=== PATIENT | female | born 1955 | race Caucasian/White ===

== ENCOUNTER 2020-08-19 10:47 | Observation (INO) | payer OTHER ==
[~2020-08-19] VITALS: Ht 165.1 cm; Wt 102.6 kg
--- NOTE | 2020-08-19 10:57 | PHYS DOC ---
Past History Past Medical History: No Pertinent History Past Surgical History: Other Smoking: Non-smoker Alcohol Use: None Drug Use: None General Adult EDM: Chief Complaint: ALTERED MENTAL STATUS HPI: HPI: Patient is a 64-year-old female presents with chief complaint of altered mental status and aphasia that happened between 9 and 10 earlier today. Patient has had a mild headache that has since resolved. Patient says she feels back to normal. Patient states she was talking on the phone and having difficulty communicating and coming up with words coming up with what happened yesterday. Patient denies any lateralizing deficits. Patient states she feels back to normal now. Review of Systems: Review of Systems: Constitutional: Denies fever or chills Eyes: Denies change in visual acuity HENT: Denies nasal congestion or sore throat Respiratory: Denies cough or shortness of breath Cardiovascular: Denies chest pain or edema GI: Denies abdominal pain, nausea, vomiting, bloody stools or diarrhea : Denies dysuria Musculoskeletal: Denies back pain or joint pain Integument: Denies rash Neurologic: Patient had a headache that has since resolved denies any focal weakness or numbness Endocrine: Denies polyuria or polydipsia Lymphatic: Denies swollen glands Psychiatric: Denies depression or anxiety Heart Score: Risk Factors: Risk Factors: DM, Current or recent (<one month) smoker, HTN, HLP, family history of CAD, obesity. Risk Scores: Score 0 - 3: 2.5% MACE over next 6 weeks - Discharge Home Score 4 - 6: 20.3% MACE over next 6 weeks - Admit for Clinical Observation Score 7 - 10: 72.7% MACE over next 6 weeks - Early Invasive Strategies Allergies: Allergies: Allergies Coded Allergies Type Severity Reaction Last Updated Verified No Known Drug Allergies 08/31/15 No Physical Exam: PE: Constitutional: Well developed, well nourished, no acute distress, non-toxic appearance. [] HENT: Normocephalic, atraumatic, bilateral external ears normal, oropharynx moist, no oral exudates, nose normal. [] Eyes: PERRLA, EOMI, conjunctiva normal, no discharge. [] Neck: Normal range of motion, no tenderness, supple, no stridor. [] Cardiovascular:Heart rate regular rhythm, no murmur [] Lungs & Thorax: Bilateral breath sounds clear to auscultation [] Abdomen: Bowel sounds normal, soft, no tenderness, no masses, no pulsatile masses. [] Skin: Warm, dry, no erythema, no rash. [] Back: No tenderness, no CVA tenderness. [] Extremities: No tenderness, no cyanosis, no clubbing, ROM intact, no edema. [] Neurologic: Alert and oriented X 3, normal motor function, normal sensory function, no focal deficits noted. [] Psychologic: Affect normal, judgement normal, mood normal. [] Current Patient Data: Labs: Laboratory Tests Test 08/19/20 11:16 08/19/20 11:35 White Blood Count 7.4 x10^3/uL Red Blood Count 4.31 x10^6/uL Hemoglobin 13.2 g/dL Hematocrit 39.9 % Mean Corpuscular Volume 92 fL Mean Corpuscular Hemoglobin 31 pg Mean Corpuscular Hemoglobin Concent 33 g/dL Red Cell Distribution Width 14.1 % Platelet Count 226 x10^3/uL Neutrophils (%) (Auto) 60 % Lymphocytes (%) (Auto) 25 % Monocytes (%) (Auto) 9 % Eosinophils (%) (Auto) 4 % Basophils (%) (Auto) 1 % Neutrophils # (Auto) 4.5 x10^3uL Lymphocytes # (Auto) 1.9 x10^3/uL Monocytes # (Auto) 0.7 x10^3/uL Eosinophils # (Auto) 0.3 x10^3/uL Basophils # (Auto) 0.1 x10^3/uL Prothrombin Time 10.0 SEC Prothromb Time International Ratio 1.0 Activated Partial Thromboplast Time 28 SEC Sodium Level 139 mmol/L Potassium Level 4.0 mmol/L Chloride Level 103 mmol/L Carbon Dioxide Level 27 mmol/L Anion Gap 9 Blood Urea Nitrogen 14 mg/dL Creatinine 1.0 mg/dL Estimated GFR (Cockcroft-Gault) 55.8 BUN/Creatinine Ratio 14 Glucose Level 95 mg/dL Calcium Level 9.3 mg/dL Total Bilirubin 0.4 mg/dL Aspartate Amino Transf (AST/SGOT) 7 U/L Alanine Aminotransferase (ALT/SGPT) 20 U/L Alkaline Phosphatase 81 U/L Troponin I Quantitative < 0.017 ng/mL Total Protein 7.0 g/dL Albumin 3.8 g/dL Albumin/Globulin Ratio 1.2 Current Medications Medications (Trade) Dose Ordered Sig/Krista Route PRN Reason Start Time Stop Time Status Last Admin Dose Admin Aspirin (Aspirin Chewable) 324 mg 1X ONCE PO 08/19/20 11:45 08/19/20 11:48 DC 08/19/20 12:55 Vital Signs: Vital Signs Date Time Temp Pulse Resp B/P (MAP) Pulse Ox O2 Delivery O2 Flow Rate FiO2 08/19/20 13:14 97.5 71 20 176/79 (111) 94 08/19/20 12:02 Room Air EKG: EKG: [] EKG interpreted by me normal sinus rhythm with rate of 79 normal axis normal intervals normal ST segments Radiology/Procedures: Radiology/Procedures: [][address] [address] IMAGING REPORT Signed PATIENT: KYLE TAVARES ACCOUNT: [id number] : 1955 LOCATION: ER AGE: 64 SEX: F EXAM STATUS: REG ER ORD. PHYSICIAN: PEDRO KEEN MD REASON: APHASIA PROCEDURE: CT HEAD WO CONTRAST Examination: CT HEAD WO CONTRAST History: APHASIA Comparison/Correlation: 08/31/2015 CT head without contrast Findings: Axial images of the head were obtained without contrast. Ventricles are normal size. No intracranial hemorrhage, midline shift or mass effect. Globes and optic nerves are unremarkable. The partially visualized paranasal sinuses are unremarkable. Mastoid air cells are clear. At the right frontal region on axial image 13, there is a 0.5 cm diameter density in the scalp which probably represents a sebaceous cyst. It is increased since the prior exam of 08/31/2015. Impression: No suspicious process. Electronically signed by: Mickey Sheldon MD (08/19/2020 11:23 AM) [id number] DICTATED AND SIGNED BY: MICKEY SHELDON MD DATE: 08/19/20 1123 CC: PEDRO KEEN MD; PCP,NO ~ [address] [address] IMAGING REPORT Signed PATIENT: KYLE TAVARES ACCOUNT: [id number] : 1955 LOCATION: ER AGE: 64 SEX: F EXAM STATUS: REG ER ORD. PHYSICIAN: PEDRO KEEN MD REASON: APHASIA PROCEDURE: CHEST AP ONLY Examination: CHEST AP ONLY History: APHASIA / Comparison: 08/31/2015 portable chest x-ray exam. Findings: AP portable upright frontal view of the chest was obtained. The cardiomediastinal silhouette is normal. Lungs are clear. There is no pneumothorax. No pleural effusion is appreciated. No acute bone abnormality. IMPRESSION: No acute cardiopulmonary process. Electronically signed by: Mickey Sheldon MD (08/19/2020 11:24 AM) [id number] DICTATED AND SIGNED BY: MICKEY SHELDON MD DATE: 08/19/20 112 CC: PEDRO KEEN MD; PCP,NO ~ [place] [address] IMAGING REPORT Signed PATIENT: KYLE TAVARES ACCOUNT: [id number] : 1955 LOCATION: [address] [place] [address] AGE: 64 SEX: F EXAM STATUS: ADM IN ORD. PHYSICIAN: PEDRO KEEN MD REASON: APHASIA, OMNI 350, 75ml PROCEDURE: CT ANGIOGRAPHY HEAD AND NECK EXAM: CT ANGIOGRAPHY HEAD AND NECK DATE: 08/19/2020 11:43 AM INDICATION: APHASIA TECHNIQUE: CTA angiogram of the head and neck was obtained after IV bolus administration of 75 cc of Optiray 350. The images were sent to workstation and multiplanar reconstructions were obtained. Multiplanar reconstruction images to include MIP and 3-D reconstruction images are submitted. One or more of the following dose reduction techniques were utilized: Automated exposure control (AEC), Adjustment of mA and/or kV according to patient size, Use of iterative reconstruction technique such as ASiR, CT scan done according to ALARA and image gently/image wisely COMPARISON: Noncontrast CT head done earlier today. FINDINGS: CTA Head: The visualized distal internal carotid arteries, anterior and middle cerebral arteries are patent and normal caliber. The distal vertebral arteries, basilar artery, and posterior cerebral arteries are patent and normal caliber. No aneurysm or arteriovenous malformation is seen. CTA Neck: Right carotid: The right common carotid artery is patent and normal caliber. The carotid bifurcation is normal. No stenosis of the right internal carotid artery per NASCET criteria. The right external carotid artery is patent. Left carotid: The left common carotid artery is patent and normal caliber. Mild atherosclerosis of the carotid bifurcation. No stenosis of the left internal carotid artery per NASCET criteria. The left external carotid artery is patent. Right vertebral: The right vertebral artery is patent and normal caliber. Left vertebral: The left vertebral artery is patent and normal caliber. The visualized portions of the aortic arch are normal. The origins of the brachiocephalic and subclavian arteries are normal. No cervical lymphadenopathy. The thyroid gland is normal. The parotid and submandibular glands are normal. The visualized aerodigestive tract is unremarkable. Mild multilevel degenerative disc height loss. Multilevel disc protrusions and marginal osteophytes results in multilevel spinal canal stenosis. Multilevel uncovertebral and facet arthrosis with multilevel neural foraminal narrowing. The visualized portions of the lungs are clear. IMPRESSION: 1. No large vessel occlusion. 2. No stenosis of the cervical carotid or vertebral arteries. PQRS Compliance Statement - Stenosis calculations for CT, MR and conventional angiography are based upon measurement of the distal ICA diameter in accordance with the NASCET methodology. Electronically signed by: Afua Slaughter MD (08/19/2020 12:50 PM) [facility] DICTATED AND SIGNED BY: AFUA SLAUGHTER MD DATE: 08/19/20 1250 CC: PEDRO KEEN MD; MARIBETH JOAQUIN MD; JULIETA MIRELES MD ~ Course & Med Decision Making: Course & Med Decision Making Pertinent Labs and Imaging studies reviewed. (See chart for details) [] 1a Level of Consciousness: 0 = Alert; keenly responsive. 1b LOC Questions: 0 = Answers both questions correctly. 1c 0 = Performs both tasks correctly. 2 Best Gaze: 0 = Normal. 3. Visual: 0 = No visual loss. 4. Facial Palsy: 0 = Normal symmetrical movements. 5. Motor Arm: Left 0 = No drift; limb holds 90 (or 45) degrees for full 10 seconds. Right 0 = No drift; limb holds 90 (or 45) degrees for full 10 seconds. 6. Motor Leg: Left 0 = No drift; leg holds 30-degree position for full 5 seconds. Right 0 = No drift; leg holds 30-degree position for full 5 seconds. 7. Limb Ataxia: 0 8. Sensory: 0 = Normal; no sensory loss. 9. Best Langauge: 0 = No aphasia; normal. 10 Dysarthria: 0 = Normal. 11. Extinction and Inattention (formerly Neglect): 0 = No abnormality. 64-year-old female presents with a 1 hour episode of some mild confusion with expressive aphasia. Concerning for a TIA. NIH is [address] shows no intracranial hemorrhage. I discussed Dr. Duarte who will admit. Dr. Dempsey will consult. No TPA was given with a NIH of 0. No LVO on CTA therefore patient not candidate for interventional neurology Dragon Disclaimer: Dragadolfo Disclaimer: This electronic medical record was generated, in whole or in part, using a voice recognition dictation system. Departure Departure: Impression: Primary Impression: TIA (transient ischemic attack) Additional Impression: Aphasia Disposition: 01 HOME/RESIDENCE PRIOR TO ADM Admitting Physician: Maribeth Joaquin Condition: STABLE Referrals: PCP,NO (PCP) Justification of Admission: Justification of Admission: Justification of Admission Dx: Yes (TIA) PEDRO KEEN MD Aug 19, 2020 10:56
[2020-08-19 11:26] LABS: BASO # 0.1 x10^3/uL (0.0-0.2); BASO % 1 % (0-3); EOS # 0.3 x10^3/uL (0.0-0.7); EOS % 4 % (0-3); HEMATOCRIT 39.9 % (36.0-47.0); HEMOGLOBIN 13.2 g/dL (12.0-15.5); LYMPH # 1.9 x10^3/uL (1.0-4.8); LYMPH % 25 % (24-48); MEAN CORPUSCULAR HEMOGLOBIN 31 pg (25-35); MEAN CORPUSCULAR HGB CONC 33 g/dL (31-37); MEAN CORPUSCULAR VOLUME 92 fL (79-100); MONO # 0.7 x10^3/uL (0.0-1.1); MONO % 9 % (0-9); NEUT # 4.5 x10^3uL (1.8-7.7); NEUT % 60 % (31-73); PLATELET COUNT 226 x10^3/uL (140-400); RED BLOOD COUNT 4.31 x10^6/uL (3.50-5.40); RED CELL DISTRIBUTION WIDTH 14.1 % (11.5-14.5); WHITE BLOOD COUNT 7.4 x10^3/uL (4.0-11.0)
--- NOTE | 2020-08-19 11:26 | RAD ---
Examination: CT HEAD WO CONTRAST History: APHASIA Comparison/Correlation: 08/31/2015 CT head without contrast Findings: Axial images of the head were obtained without contrast. Ventricles are normal size. No intracranial hemorrhage, midline shift or mass effect. Globes and optic nerves are unremarkable. The partially visualized paranasal sinuses are unremarkable. Mastoid air cells are clear. At the right frontal region on axial image 13, there is a 0.5 cm diameter density in the scalp which probably represents a sebaceous cyst. It is increased since the prior exam of 08/31/2015. Impression: No suspicious process. Electronically signed by: Mickey Manning MD (08/19/2020 11:23 AM) [email or web address]
--- NOTE | 2020-08-19 11:27 | RAD ---
Examination: CHEST AP ONLY History: APHASIA / Comparison: 08/31/2015 portable chest x-ray exam. Findings: AP portable upright frontal view of the chest was obtained. The cardiomediastinal silhouette is normal. Lungs are clear. There is no pneumothorax. No pleural effusion is appreciated. No acute bone abnormality. IMPRESSION: No acute cardiopulmonary process. Electronically signed by: Mickey Manning MD (08/19/2020 11:24 AM) [email or web address]
[2020-08-19] MEDS ORDERED: ASPIRIN CHEWABLE 81 MG TABLET. PO ONE (11:45)
[2020-08-19] MEDS ORDERED: IOHEXOL 350 MG/ML 100 ML VIAL. IV ONE (12:00)
[2020-08-19 12:02] LABS: CALCIUM 9.3 mg/dL (8.5-10.1); GFR 55.8
[2020-08-19 12:07] LABS: ALBUMIN 3.8 g/dL (3.4-5.0); ALBUMIN/GLOBULIN RATIO 1.2 (1.0-1.7); TOTAL BILIRUBIN 0.4 mg/dL (0.2-1.0)
--- NOTE | 2020-08-19 12:53 | RAD ---
EXAM: CT ANGIOGRAPHY HEAD AND NECK DATE: 08/19/2020 11:43 AM INDICATION: APHASIA TECHNIQUE: CTA angiogram of the head and neck was obtained after IV bolus administration of 75 cc of Optiray 350. The images were sent to workstation and multiplanar reconstructions were obtained. Multiplanar reconstruction images to include MIP and 3-D reconstruction images are submitted. One or more of the following dose reduction techniques were utilized: Automated exposure control (AEC), Adjustment of mA and/or kV according to patient size, Use of iterative reconstruction technique such as ASiR, CT scan done according to ALARA and image gently/image wisely COMPARISON: Noncontrast CT head done earlier today. FINDINGS: CTA Head: The visualized distal internal carotid arteries, anterior and middle cerebral arteries are patent and normal caliber. The distal vertebral arteries, basilar artery, and posterior cerebral arteries are patent and normal caliber. No aneurysm or arteriovenous malformation is seen. CTA Neck: Right carotid: The right common carotid artery is patent and normal caliber. The carotid bifurcation is normal. No stenosis of the right internal carotid artery per NASCET criteria. The right external carotid artery is patent. Left carotid: The left common carotid artery is patent and normal caliber. Mild atherosclerosis of the carotid bifurcation. No stenosis of the left internal carotid artery per NASCET criteria. The left external carotid artery is patent. Right vertebral: The right vertebral artery is patent and normal caliber. Left vertebral: The left vertebral artery is patent and normal caliber. The visualized portions of the aortic arch are normal. The origins of the brachiocephalic and subclavian arteries are normal. No cervical lymphadenopathy. The thyroid gland is normal. The parotid and submandibular glands are normal. The visualized aerodigestive tract is unremarkable. Mild multilevel degenerative disc height loss. Multilevel disc protrusions and marginal osteophytes results in multilevel spinal canal stenosis. Multilevel uncovertebral and facet arthrosis with multilevel neural foraminal narrowing. The visualized portions of the lungs are clear. IMPRESSION: 1. No large vessel occlusion. 2. No stenosis of the cervical carotid or vertebral arteries. PQRS Compliance Statement - Stenosis calculations for CT, MR and conventional angiography are based upon measurement of the distal ICA diameter in accordance with the NASCET methodology. Electronically signed by: Akshat Slaughter MD (08/19/2020 12:50 PM) [facility]ALTH[facility]
[2020-08-19 13:14] VITALS: BP 176/79
--- NOTE | 2020-08-19 13:30 | NUR ---
The patient, KYLE TAVARES, 64 y/o, F admitted by SENG WARREN MD, was given written information regarding hospital policies, unit procedures and used car salesperson. Patient was calm, pleasant, and compliant at admit. Oriented patient to unit, including her room, light, bed and tv controls, visitation policy, and telephone. Will continue to monitor.
--- NOTE | 2020-08-19 14:54 | EKG ---
[address] [address] Test Date: 2020-08-19 Test Time: 11:08:44 Pat Name: KYLE TAVARES Department: Room: Gender: F Director Security Management: ROSALIO : 1955 Requested By: PEDRO KEEN Order Number: [id number] Reading MD: Measurements Intervals [place] Rate: 79 P: 48 [place]: 152 QRS: 14 QRSD: 76 T: 36 QT: 364 QTc: 423 Interpretive Statements SINUS RHYTHM NORMAL ECG RI6.02 No previous ECG available for comparison
--- NOTE | 2020-08-19 18:33 | HP ---
ADMIT DATE: 08/19/2020 HISTORY OF PRESENT ILLNESS: The patient is a 64-year-old female patient who came to the Emergency Room with a chief complaint of altered mental status and aphasia that happened between 9 and 10 early this morning. She has had a mild headache that has since resolved. The patient states that she feels back to normal. Denied any tingling or numbness. Denied any weakness. Denied any blurring of vision or diplopia. She stated that she was talking on the phone with her friend and had experienced difficulty communicating and finding the right words and that happened twice and her friends contacted her family and they brought her to the Emergency Room. By that time she was able to express herself without any difficulty. She was extensively investigated in the Emergency Room and has had lab work that was mostly unremarkable. Has had a CT scan of the head, which basically showed no suspicious process. Her chest x-ray was unremarkable and CT angio of the chest and neck showed that there is no large vessel occlusion; no stenosis of the cervical, carotid or vertebral arteries. The patient was admitted to consult the neurologist. I would also check her fasting lipid profile and perhaps arrange for an echocardiogram if possible to be done, either inpatient or outpatient if we can do that over the weekend. PAST MEDICAL HISTORY: Significant for severe osteoarthritis of her right knee and right hip joint. She also had morbid obesity, but she never had any other comorbidities with that. PAST SURGICAL HISTORY: Significant for gastric sleeve surgery, varicose vein stripping and tubal ligation. She has 4 normal vaginal deliveries. ALLERGIES: She has no known drug allergies. MEDICATIONS: She is currently on no medication by prescription or otherwise. FAMILY HISTORY: Her mother at age of 63 because of myocardial infarction. She underwent nephrectomy for renal cell carcinoma. She was diabetic. Her father at the age of 74 because of lung cancer. She has 4 sisters, her oldest sister of stomach cancer. Her second sister diagnosed with colon cancer; however, she survived. Third sister is healthy and fourth sister is diabetic. Her brother is older and healthy. SOCIAL HISTORY: She is , but lived together with her ex-. She has 2 daughters and 2 sons. She never smoked, does not drink alcohol or use any recreational drugs. 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 REVIEW OF SYSTEMS: The patient denied any blurring of vision, cataract, glaucoma or macular degeneration. Denied any earache, tinnitus or sensorineural deafness. Denied any nosebleeds, stuffy nose or postnasal drip. Denied any sore throat, sore tongue, toothache, hoarseness of voice or difficulty swallowing. Denied any nausea, vomiting, diarrhea or constipation. Denied any hematemesis, melena or hematochezia. Denied any dysuria, frequency or hematuria. Denied any dizziness, lightheadedness, or vertigo. Denied any tingling or numbness or any lateralizing sign. Denied any diplopia. She did complain of expressive aphasia and difficulty finding words that has resolved by the time she arrived here. PHYSICAL EXAMINATION: GENERAL: On arrival to the Emergency Room, she looked well and was clearly in no apparent respiratory distress. No pallor, jaundice or cyanosis. No lymphadenopathy, no thyromegaly. No jugular venous distention. No limb edema. VITAL SIGNS: Her heart rate was 75, blood pressure was 174/98, temperature was 98.3, respiratory rate was 16, and oxygen saturation was 96%. HEAD, EYES, EARS, NOSE AND THROAT: Showed normocephalic, atraumatic. NECK: Supple. HEART: Showed normal first and second heart sounds. No gallop, rub or murmur. CHEST: Clear to auscultation. No crepitation or rhonchi. ABDOMEN: Distended, soft, nontender. NEUROLOGIC: She is awake, alert, responding appropriately. All her cranial nerves are intact. EXTREMITIES: She moves extremities without difficulty. She ambulates without assistance or assistive devices, although she said that she is normally unsteady because of severe osteoarthritis in her right knee and hip joint. LABORATORY DATA: Her lab work on arrival showed a white cell count of 7400, hemoglobin 13, hematocrit 39, MCV 92, and platelet count 226,000. Her chemistry showed a serum sodium 139, potassium 4, chloride 103, bicarbonate 27, anion gap of 9, BUN 14, creatinine 1, estimated GFR was 55 mL per minute. Her glucose was 95, calcium was 9.3. Total bilirubin, AST, ALT, alkaline phosphatase were normal. Total protein 7. Albumin was 3.8. Her prothrombin time was 10, INR 1, aPTT was 23. Her CT scan of the head showed that the ventricles are normal in size, no intracranial hemorrhage, midline shift, or mass effect. Globes and optic nerves are unremarkable. The partially visualized paranasal sinuses are unremarkable. Mastoid air cells are clear. The right frontal region on axial 13, there is 0.5 cm diameter density in the scalp, which probably represents a sebaceous cyst. It has increased in size since prior exam on 08/31/2015. Her chest x-ray was unremarkable and showed no acute cardiopulmonary process and her CT angio of the head and neck showed that there is no large vessel occlusion and no stenosis; cervical, carotid or vertebral arteries. ASSESSMENT AND PLAN: The patient was admitted to check her fasting lipid profile and consult the neurologist for further evaluation. SENG WARREN MD DR: LAZARO/rosalba JOB#: [id number] / [id number]
[2020-08-19 20:35] VITALS: BP 144/79
--- NOTE | 2020-08-19 22:35 | CONS ---
DATE OF CONSULTATION: 08/19/2020 NEUROLOGY CONSULTATION REFERRING PHYSICIAN: Dr. Joaquin. REASON FOR CONSULTATION: Rule out TIA versus stroke. HISTORY OF PRESENT ILLNESS: This is a 64-year-old right-handed female who was admitted through Emergency Room after she presented with new onset of difficulty finding words and speak. According to the patient, she was talking on phone and all of a sudden she could not find words or complete sentences. This event occurred between 8-9 a.m. this morning. The symptoms lasted less than 1 hour. On arrival to the Emergency Room, the patient had no difficulty speaking and denied any neurological problems. As a matter of fact, she took a shower after the event and she did not have any slurred speech, facial drooping, weakness, numbness or paresthesia or dizziness. She denies chest pain, shortness of breath or palpitations or vertigo. The patient denies also dysphagia or dysarthria. She has not been seen by physician for a while; however, she stated her blood pressure always high. On arrival to Emergency Room, her blood pressure was 174/98. Initial nonenhanced head CT scan revealed no acute intracranial process. The ER physician called me to discuss the case and I asked him to do CT angio of the neck and head before transferred to the hospital. She was started on aspirin 324 mg p.o. Since admission, the patient has not had any recurrent symptoms or any other neurological problems. PAST MEDICAL HISTORY: Negative as the patient has not been seen by any physicians for years; however, she stated she probably has had hypertension. Osteoarthritis. PAST SURGICAL HISTORY: Positive for right leg varicose vein surgery. SOCIAL HISTORY: The patient denies smoking, alcohol drinking, or illicit drug use. ALLERGIES: No known drug allergies. CURRENT HOME MEDICATIONS: None. PHYSICAL EXAMINATION: GENERAL: Well-developed, well-nourished female, not in acute distress, very pleasant. She weighs 102.6 kilos. VITAL SIGNS: Blood pressure 176/79, respiratory rate 20, pulse 71, oxygen saturation 94% on room air, temperature 97.5. HEENT: Normocephalic, atraumatic, otherwise unremarkable. NECK: Supple. Negative for carotid bruit, lymphadenopathy or thyromegaly. LUNGS: Clear to A and P. CARDIOVASCULAR: Regular rate and rhythm. Normal S1, S2. There is no S3, S4 or murmur. ABDOMEN: Soft. Bowel sounds positive. EXTREMITIES: Negative for cyanosis, clubbing or pitting edema. NEUROLOGICAL: MENTAL STATUS: The patient is alert and oriented x 3. Speech is fluent. There is no language dysfunction. Memory, judgment, and abstracting thinking are normal. The patient denies hallucination or delusion. CRANIAL NERVES: Visual mojica are full. The pupils are reactive to light and accommodation. The extraocular movements are intact. There is no nystagmus. There is no facial motor or sensory deficit. Hearing is intact bilaterally. The palate is elevated symmetrically. Sternocleidomastoid muscles are powerful bilaterally. The patient shrugs her shoulders symmetrically, protrudes her tongue in the midline without fasciculation or atrophy. MOTOR: No focal muscle bulk was seen. The tone is normal. The strength is 5/5 throughout. SENSORY: Revealed normal pinprick, light touch, vibratory and position senses. Deep tendon reflexes were symmetric and hypoactive with absent Achilles responses. Gait and coordination are normal. DIAGNOSTIC DATA: Nonenhanced head CT scan revealed no acute intracranial process, otherwise unremarkable. CT angio of the neck and head revealed no significant findings and chest x-ray revealed no acute cardiopulmonary process. LABORATORY DATA: CBC revealed white blood cells of 7400, hemoglobin 13.2, hematocrit 39.9, platelet count 226,000. Chemistry revealed sodium of 139, potassium 4, chloride 103, CO2 of 27, BUN 14, creatinine 1, glucose 95. Liver enzymes are normal. Troponin level is less than 0.017. Coagulation: PT is 1. IMPRESSION: 1. Possible brief transient ischemic attack without significant neurological residual probably provoked by hypertension. 2. Normal neurological examination. RECOMMENDATIONS: 1. Treat the underlying hypertension. 2. Continue with aspirin 324 mg p.o. daily. 3. Follow up with Dr. Hameed after 2 weeks from discharge. 4. We will check fasting lipid profile in the morning. M Gerber HAMEED MD DR: CRISTA/rosalba JOB#: [id number] / [id number]
[2020-08-19 22:47] VITALS: BP 137/84
[2020-08-20 05:50] VITALS: BP 128/76
[2020-08-20 08:00] LABS: CALCIUM 8.6 mg/dL (8.5-10.1); CREATININE 0.9 mg/dL (0.6-1.0); POTASSIUM 3.8 mmol/L (3.5-5.1)
[2020-08-20 10:39] VITALS: BP 124/74
[2020-08-20] MEDS ORDERED: ASPI325T11 PO (13:57)
--- NOTE | 2020-08-20 14:25 | DS ---
DATE OF DISCHARGE: HOSPITAL COURSE: The patient is a 64-year-old female patient who was admitted with a brief episode of what seemed to be expressive aphasia that has resolved by the time she arrived to the Emergency Room. She has had no blurring of vision, diplopia, tingling, numbness or localized weakness. She did have a brief episode of headache that has resolved. She was extensively investigated and her lab works were unremarkable. CT scan of the head was unremarkable and CT angio of the head and neck showed basically no large vessel occlusion, no stenosis of the cervical, carotid or vertebral arteries. Her fasting lipid profile showed serum triglycerides of 61, total cholesterol 157, LDL was 102, VLDL was 12, and HDL was 43 and the ratio was 3. PHYSICAL EXAMINATION: GENERAL: When I saw her this afternoon, she was sitting comfortably in bed, in no apparent distress. On questioning her, denied any complaint, in particular, she has no further episode of expressive aphasia, has been up and about without difficulty. Nursing staff did not voice any concern and therefore, the patient was discharged. When I examined her, she looked well and was clearly in no apparent respiratory distress. No pallor, jaundice, cyanosis or thyromegaly. No jugular venous distention. No limb edema. VITAL SIGNS: Her heart rate was 82, blood pressure was 124/74, temperature 97.9, respiratory rate was 20, and oxygen saturation was 96% on room air. HEAD, EYES, EARS, NOSE AND THROAT: Normocephalic, atraumatic. NECK: Supple. HEART: Normal first and second heart sounds. No gallop or murmur. CHEST: Clear to auscultation. No crepitation or rhonchi. ABDOMEN: Distended, soft, nontender. NEUROLOGIC: She was grossly intact. LABORATORY DATA: As of this morning showed a serum sodium 140, potassium 3.8, chloride 105, bicarbonate 25, anion gap of 10, BUN 9, creatinine 0.9, estimated GFR was 63 mL per minute. Her glucose was 93, calcium was 8.6. Serum triglycerides 61, total cholesterol 157, LDL was 102, VLDL was 12, HDL was 43 and the ratio was 3. DISCHARGE MEDICATIONS: The patient was discharged home to continue on enteric-coated aspirin 325 mg once a day. She was encouraged to measure her blood pressure and follow with her primary care physician and should also follow with Dr. Dempsey in 2 weeks' time. FINAL DISCHARGE DIAGNOSES: 1. Transient ischemic attack. 2. Questionable borderline hypertension. SENG WARREN MD DR: LAZARO/rosalba JOB#: [id number] / [id number]
[2020-08-20] MEDS ORDERED: FLU VACC QS 2020-21(6MOS+)/PF 0.5 ML SYRINGE. VAX IM ONE (14:30)
--- NOTE | 2020-08-20 14:30 | NUR ---
Patient discharged to home. Given written discharge instructions and voiced understanding. All belongings sent home with patient. Patient ambulated out of building to family vehicle with staff.
== END 2020-08-20 14:31 | disposition home or self-care (01) ==
LOC: ER 10:47 → 1 SOUTH 11:47
PROVIDERS: ADMIT Internal Medicine; ATTEND Internal Medicine
DX: G45.9 Transient cerebral ischemic attack, unspecified (principal); R41.82 Altered mental status, unspecified; M17.11 Unilateral primary osteoarthritis, right knee; Z23 Encounter for immunization
CPT/HCPCS: 36415; 70450; 70496; 70498; 71045; 80048; 80053; 80061; 84484; 85025; 85610; 85730; 90471; 90686; 93005; 99285; G0378; Q9967; G0379

== ENCOUNTER → 2020-08-31 | Outpatient (CLI) | payer OTHER ==
[2020-08-20 10:39] VITALS: BP 124/74
[~2020-08-31] MED LIST: ASPI325T11 PO
--- NOTE | 2020-09-01 11:50 | RAD ---
DATE: 08/31/2020 EXAM: DIGITAL SCREEN BILAT W/CAD HISTORY: Screening mammogram COMPARISON: 02/18/2012 This study was interpreted with the benefit of Computerized Aided Detection (CAD). Breast Density: The breast parenchyma is primarily fatty replaced. Breast parenchyma level density A. FINDINGS: No suspicious mass, calcification, or architectural distortion in either breast. IMPRESSION: No evidence of malignancy in either breast. BI-RADS CATEGORY: 1 NEGATIVE RECOMMENDED FOLLOW-UP: Annual screening mammogram. PQRS compliance statement: Patient information was entered into a reminder system with a target due date 09/01/2021 for the next mammogram. Mammography is a sensitive method for finding small breast cancers, but it does not detect them all and is not a substitute for careful clinical examination. A negative mammogram does not negate a clinically suspicious finding and should not result in delay in biopsying a clinically suspicious abnormality. "Our facility is accredited by the [employer] Mammography Program." EMILYD
== END ==
LOC: MAMMO 13:25
PROVIDERS: ATTEND Internal Medicine
DX: Z12.31 Encounter for screening mammogram for malignant neoplasm of breast (principal)
CPT/HCPCS: 77067

== ENCOUNTER 2021-07-21 21:15 | Emergency (ER) | payer MEDICARE, OTHER ==
[~2021-07-21] VITALS: Ht 165.1 cm; Wt 95.8 kg
[2021-07-21 21:20] VITALS: BP 148/81
--- NOTE | 2021-07-21 21:36 | PHYS DOC ---
Past History Past Medical History: No Pertinent History (WERO CHEEMA APRN) Past Surgical History: Other (WERO CHEEMA APRN) Smoking: Non-smoker Alcohol Use: None Drug Use: None (WERO CHEEMA APRN) General Adult EDM: Chief Complaint: HAND PROBLEM HPI: HPI: Patient is a 65-year-old female who presents to the ER for a hematoma to her right hand. Patient reports that she is unsure of how she injured her hand but she noticed a hematoma on the dorsal aspect of her right hand proximal to her MCP joint of the third finger. Patient denies any decreased mobility or decreased sensation to her hand. No treatment prior to arrival. (WERO CHEEMA APRN) Review of Systems: Review of Systems: 14 body systems of the review of systems have been reviewed. See HPI for pertinent positive and negative responses, otherwise all other systems are negative, nonpertinent or noncontributory (WERO CHEEMA APRN) Allergies: Allergies: Allergies Coded Allergies Type Severity Reaction Last Updated Verified No Known Drug Allergies 08/31/15 No (WERO CHEEMA APRN) Physical Exam: PE: Constitutional: Well developed, well nourished, no acute distress, non-toxic appearance. [] HENT: Normocephalic, atraumatic Eyes: PERRL, EOMI, conjunctiva normal, no discharge. [] Neck: Normal range of motion, no stridor Cardiovascular: Normal peripheral perfusion Lungs & Thorax: Normal work of breathing, no tachypnea Abdomen: Bowel sounds normal, soft, no tenderness, no masses, no pulsatile masses. [] Skin: Warm, dry, no erythema, no rash. [] Back: Normal range of motion Extremities: No tenderness, no cyanosis, no clubbing, ROM intact, no edema. Right hand: 3 cm hematoma noted to patient's dorsal aspect of right hand proximal to MCP joint of right third finger. Range of motion intact, neurovascularly intact. Neurologic: Alert and oriented X 3, normal motor function, normal sensory function, no focal deficits noted. [] Psychologic: Affect normal, judgement normal, mood normal. [] (WERO CHEEMA APRN) EKG: EKG: [] (WERO CHEEMA APRN) Radiology/Procedures: Radiology/Procedures: PROCEDURE: HAND RIGHT 3V XR HAND_RIGHT 3 VIEWS DATE: 07/21/2021 9:21 PM INDICATION: RIGHT HAND PAIN AND SWELLING AT 3RD KNUCKLE COMPARISON: None. FINDINGS: Bones: There is no evidence of acute fracture or dislocation. Joints: The joint spaces are normal. Miscellaneous: None. IMPRESSION: No acute osseous abnormality. Electronically signed by: Afua Slaughter MD (07/21/2021 9:46 PM) [facility] DICTATED AND SIGNED BY: AFUA SLAUGHTER MD DATE: 07/21/212142 CC: WERO CHEEMA APRN; JULIETA MIRELES MD ~MTH0 0 [] (WERO CHEEMA APRN) Heart Score: C/O Chest Pain: No Risk Factors: Risk Factors: DM, Current or recent (<one month) smoker, HTN, HLP, family history of CAD, obesity. Risk Scores: Score 0 - 3: 2.5% MACE over next 6 weeks - Discharge Home Score 4 - 6: 20.3% MACE over next 6 weeks - Admit for Clinical Observation Score 7 - 10: 72.7% MACE over next 6 weeks - Early Invasive Strategies (WERO CHEEMA APRN) Course & Med Decision Making: Course & Med Decision Making Pertinent Labs and Imaging studies reviewed. (See chart for details) Patient was seen in the ER for hematoma to her right hand. Patient is unsure of any injury. An x-ray was performed to rule out a fracture and it was negative for any acute findings. An Fredy wrap was placed and ice pack was provided. Patient advised to continue using Fredy wrap, ice, and elevation. I discussed with patient all findings and diagnostic testing as well as the need to follow- up with PCP for further evaluation and treatment or return to the ER if any new or worsening symptoms. Strict return precautions were also discussed at length. Patient voiced understanding and agreement with the plan. Patient is hemodynamically stable at the time of disposition. (WERO CHEEMA APRN) Course & Med Decision Making Did not see or evaluate patient. Agree with CHECK SERVICES CLERK's work-up and disposition per note. (NAHED ESPARZA MD) Dragon Disclaimer: Dragon Disclaimer: This electronic medical record was generated, in whole or in part, using a voice recognition dictation system. (WERO CHEEMA APRN) Departure Departure: Impression: Primary Impression: Hematoma Disposition: HOME / SELF CARE / HOMELESS Condition: GOOD Referrals: JULIETA MIRELES MD (PCP) Patient Instructions: Hematoma Additional Instructions: You were seen for a hematoma to your right hand. An x-ray was performed to rule out a fracture and it was negative for any fracture. Your hand was placed in Fredy wrap and you were given an ice pack. Please continue to use the Fredy wrap and apply ice as well as elevate your hand and this will help with the swelling. The collection of blood under your skin should reabsorb. If you develop worsening of your hand pain, increased swelling, decreased sensation to your extremity, chest pain, shortness of breath please return to the ER immediately. EMERGENCY DEPARTMENT GENERAL DISCHARGE INSTRUCTIONS Thank you for coming to [facility] (ED) today and trusting us with you care. We trust that you had a positivie experience in our Emergency Department. If you wish to speak to the department management, you may call the director at [phone]. YOUR FOLLOW UP INSTRUCTIONS ARE FOLLOWS: 1. Do you have a private Doctor? If you do not have a private doctor, please ask for a resource list of physicians or clinics that may be able to assist you with follow up care. 2. The Emergency Physician has interpreted your x-rays. The X-Ray specialist will also review them. If there is a change in the findings, you will be notified in 48 hours when at all possible. 3. A lab test or culture has been done, your results will be reviewed and you will be notified if you need a change in treatment. ADDITIONAL INSTRUCTIONS AND INFORMATION: 1. Your care today has been supervised by a physician who is specially trained in emergency care. Many problems require more than one evaluation for a complete diagnosis and treatment. We recommend that you schedule your follow up appointment as recommended to ensure complete treatment of you illness or injury. If you are unable to obtain follow up care and continue to have a problem, or if your condition worsens, we recommend that you return to the ED. 2. We are not able to safely determine your condition over the phone nor are we able to give sound medical advice over the phone. For these safety reasons, if you call for medical advice we will ask you to come to the ED for further evaluation. 3. If you have any questions regarding these discharge instructions please call the ED at [phone]. SAFETY INFORMATION: In the interest of safety, wellness, and injury prevention; we encourage you to wear your sealbelt, if you smoke; quite smoking, and we encourage family to use a protective helmet for bicycling and other sporting events that present an increased risk for head injury. IF YOUR SYMPTOMS WORSEN OR NEW SYMPTOMS DEVELOP, OR YOU HAVE CONCERNS ABOUT YOUR CONDITION; OR IF YOUR CONDITION WORSENS WHILE YOU ARE WAITING FOR YOUR FOLLOW UP APPOINTMENT; EITHER CONTACT YOUR PRIMARY CARE DOCTOR, THE PHYSICIAN WHOSE NAME AND NUMBER YOU WERE GIVEN, OR RETURN TO THE ED IMMEDIATELY. WERO CHEEMA APRN Jul 21, 2021 21:35 NAHED ESPARZA MD Jul 21, 2021 22:08
--- NOTE | 2021-07-21 21:49 | RAD ---
XR HAND_RIGHT 3 VIEWS DATE: 07/21/2021 9:21 PM INDICATION: RIGHT HAND PAIN AND SWELLING AT 3RD KNUCKLE COMPARISON: None. FINDINGS: Bones: There is no evidence of acute fracture or dislocation. Joints: The joint spaces are normal. Miscellaneous: None. IMPRESSION: No acute osseous abnormality. Electronically signed by: Akshat Slaughter MD (07/21/2021 9:46 PM) [facility]
[2021-07-21] MEDS ORDERED: LISI10TA16 PO (21:53)
[2021-07-21] MEDS ORDERED: ASPI325T11 PO (21:53)
== END 2021-07-21 21:55 | disposition home or self-care (01) ==
LOC: ER 21:15
DX: S60.031A Contusion of right middle finger without damage to nail, initial encounter (principal); X58.XXXA Exposure to other specified factors, initial encounter; Y93.89 Activity, other specified; Y92.89 Other specified places as the place of occurrence of the external cause; Y99.8 Other external cause status
CPT/HCPCS: 73130; 99283